=== PATIENT | female | born 1985 | race Caucasian/White ===

== ENCOUNTER → 2025-03-12 17:28 | Day surgery (SDC) | payer OTHER, SELFPAY ==
[2025-03-12] VITALS (12 sets, daily range): BP systolic 105–123; BP diastolic 64–95
[2025-03-12] MEDS: TORADOL 15 MG IV (12:17)
[2025-03-12] MEDS: OMNIPAQUE 50 ML PO (12:18)
[2025-03-12 12:36] LABS: % Basophils 0.3 % (0-2); % Eosinophils 0.3 % (0-6); % Immature Granulocytes 0.5 % (0-0.5); % Monocytes 3.9 % (1.7-9.3); Absolute Immature Granulocytes 0.1 10^3/uL (0-0.05); Absolute Lymphocytes 2.1 10^3/uL (1.2-3.4); Absolute Monocytes 0.5 10^3/uL (0.1-0.6); Absolute Neutrophils 9.1 10^3/uL (1.4-6.5); Hematocrit 40.2 % (37.0-47.0); Hemoglobin 13.7 g/dL (12.0-16.0); Mean Corp Hgb Conc. 34.1 g/dL (33.0-37.0); Mean Corpuscular Hgb 29.6 pg (27.0-31.0); Mean Corpuscular Volume 86.8 fL (81.0-99.0); Mean Platelet Volume 8.9 fL (7.4-10.4); Nucleated Red Blood Cells % 0 %; Platelet Count 344 10^3/uL (130-400); Red Blood Cell Count 4.63 10^6/uL (4.20-5.40); Red Cell Dist. Width 12.8 % (11.5-14.5); White Blood Cell Count 11.8 10^3/uL (4.8-10.8)
[2025-03-12 12:46] LABS: HCG, Serum Qualitative Screen Negative; Urine Albumin 1+ (Neg - Trace); Urine Bilirubin Negative (Negative); Urine Character Clear (Clear); Urine Color Yellow; Urine Glucose Negative (Negative); Urine Ketone 1+ (Negative); Urine Leukocyte 2+ (Negative); Urine Nitrite Negative (Negative); Urine Occult Blood 1+ (Negative); Urine Urobilinogen 3+ (Neg - 1+)
[2025-03-12 12:50] LABS: ALT (SGPT) 20 U/L (0-35); AST (SGOT) 21 U/L (14-36); Albumin 4.5 g/dl (3.5-5.0); Alkaline Phosphatase 63 U/L (38-126); Blood Urea Nitrogen 10 mg/dl (7-17); Calcium 9.8 mg/dl (8.4-10.2); Carbon Dioxide 29 mmol/L (22-30); Chloride 104 mmol/L (98-107); Glucose 97 mg/dl (70-99); Lipase 46 U/L (23-300); Potassium 3.9 mmol/L (3.5-5.1); Sodium 141 mmol/L (135-145); Total Bilirubin 0.9 mg/dl (0.2-1.3); Total Protein 7.8 g/dl (6.3-8.2); eGFR > 60.00
[2025-03-12 16:50] LABS: Urine Red Blood Cell 0-2 /HPF (0-2)
[2025-03-12 16:51] LABS: Urine Bacteria Few (Negative)
--- NOTE | 2025-03-12 17:12 | W.SUR.PREOP ---
Pre-Operative Surgical Note
-
I have examined this patient prior to the performance of the scheduled procedure.
The patient's condition is unchanged from the time of the current History and
Physical and the patient is able to undergo the scheduled procedure.
--- NOTE | 2025-03-12 17:12 | HPS.HSE ---
Family Physician
-
Family Physician: Dakota Aden
Chief Complaint
-
Right lower quadrant abdominal pain
History of Present Illness
This is a 39-year-old female with no significant past medical history who presents with a 2-day history of worsening right lower quadrant abdominal pain initially with vague periumbilical symptoms now more focally in the right lower quadrant. She
endorses some very mild nausea but no vomiting and no other changes to her bowel habits. The patient denies Fever, Chest Pain, Shortness Of Breath, Nausea, Vomiting, changes in urinary and bowel habits, unintentional weight loss, jaundice, icterus,
acolic stools.
Medical History
Past Medical History
Past Medical History: Reports None and Other (Anxiety)
Past Surgical History: Reports None
Social History
Tobacco: Non-smoker
Alcohol: None
Personal: Single
Living: With Family
Family History
Family History: Not pertinent
Allergies / Home Medications
Allergies reflects when Allergies were last updated in [facility].
Home Medications with original date entered in [facility]
Allergy/Medication List:
Benadryl?
Review of Systems
-
A 12 point ROS was completed and negative except as noted: Yes
Physical Exam
Vital Signs
Vital Signs
Temp Pulse Resp BP Pulse Ox
98.3 F 102 16 123/95 98
03/12/25 11:15 03/12/25 11:15 03/12/25 11:15 03/12/25 12:00 03/12/25 12:15
Physical Exam
General: Well Developed
Respiratory: Non Labored Respirations
GI: Tender (Tender to palpation in the right lower quadrant. Positive Rovsing sign)
Neuro: AO x 3
Laboratory Results
-
03/12/25 12:23
03/12/25 12:23
Laboratory Results
Total Bilirubin 0.9 mg/dl (0.2-1.3) 03/12/25 12:23
AST 21 U/L (14-36) 03/12/25 12:23
ALT 20 U/L (0-35) 03/12/25 12:23
Alkaline Phosphatase 63 U/L (38-126) 03/12/25 12:23
Lipase 46 U/L (23-300) 03/12/25 12:23
Data Reviewed
-
CT Scan: Image Personally Visualized and interpreted, Report Reviewed by me, Discussed with Physician, Discussed with Patient and Discussed with Family
Lab Data: Labs Reviewed by me, Discussed with Physician and Discussed with Patient
Impression/Plan
-
IMPRESSION: This is a 39-year-old female who presents to our hospital with 2 days of abdominal pain now more focally in the right lower quadrant. She is tender to palpation in the right lower quadrant and has a mild leukocytosis. Her CT scan
demonstrates mildly thickened appendix with some periappendiceal fat stranding and adjacent lymphadenopathy on my read. There is also note of a possible distal ureteral stone
PLAN:
That the patient is very anxious, we had a long discussion regarding her imaging and exam findings and I suspect that she had a recent GI illness caused her lymphadenopathy and potential blockage of her appendix now leading to early appendicitis.
While this can be managed potentially with antibiotics alone there is a risk for failure of medical management and needing further interventions in addition to a prolonged course of antibiotics versus upfront surgery. After discussion of the risk
benefits and alternatives the patient consented for and would like to move forward with surgery.
Will plan for a laparoscopic appendectomy in the OR today.
N.p.o., IV fluids, IV antibiotics.
May discharge home versus admit post procedure depending on operative findings and postop clinical course.
Risks/Benefits/Alternatives, expected postoperative course and possible complications (bleeding, infection, injury to surrounding structures, acute/chronic pain) discussed at length. Patient wishes to proceed with surgery. All questions answered.
Consent obtained.
I spent 60 minutes in total for the care of this patient today including direct patient care and counseling, reviewing labs, imaging, coordination of care, as well as documentation.
[2025-03-12] MEDS: ATIVAN 0.5 MG IV (17:19)
--- NOTE | 2025-03-12 17:24 | DOWNTIME ---
There was a [employer] Client Button Machine Operator Downtime on 03/12/2025 from 1230 to 03/12/2025 at 1550. Downtime documentation of patient's care, including medication administrations, has been reconciled in the electronic record per guidelines. Refer to the
patient's paper chart under the miscellaneous tab to see printed paper medication records and downtime forms.
--- NOTE | 2025-03-12 18:10 | ED.ADDNOTE ---
ED Addendum
ED Addendum
ED Addendum Note:
Patient received in signout.
39-year-old woman presenting to the emergency department periumbilical pain that radiated down to her right lower quadrant with decreased appetite and nausea. I did receive a call from radiology stating that there is a 2 mm distal ureter stone,
signs of mesenteric adenitis but cannot clearly visualize the appendix though no secondary signs of appendicitis. her blood work did come back with elevated white count. She does have some blood in her urine. Patient does have a convincing story
for appendicitis and remains tender to palpation of the right lower quadrant. I did discuss with general surgery who reviewed CT imaging and evaluated patient. Recommended laparoscopic appendectomy. Will order Zosyn. Given patient's anxiety and
panic attack that she had during my conversation we will treat with small dose of IV Ativan.
--- NOTE | 2025-03-12 18:23 | W.IMMPOSTOP ---
Surgical Immed Post Op Note
-
Primary Surgeon: Joseph Colbert MD
Assisting Surgeon: None
Pre-op Diagnosis: Acute appendicitis
Post-op Diagnosis: Same
Procedure Performed: Laparoscopic appendectomy
Anesthesia Type: General
Specimen / Cultures: Appendix
Estimated Blood Loss: 1 cc
Complications: None
Operative Findings: Mildly inflamed, nonperforated thickened appendix. Base ligated with x2 0 PDS Endoloops.
POST OP PLAN:
Will discharge home from PACU if patient meets criteria.
--- NOTE | 2025-03-12 18:24 | OR.RPT ---
Operative Report
Operative Report
Patient Name: Atiya Lama
: 1985
Date of Operation: 03/12/2025
Preoperative Diagnosis: Acute Appendicitis
Postoperative Diagnosis: Same
Procedure(s):
Laparoscopic Appendectomy
Surgeon(s):
Dr. Colbert
Solutions Operator(s): None
Anesthesia: General
Estimated Blood Loss: 1 cc
Urine Output: None
Drains/Lines/Implants: None
Specimens:
1. Appendix
HPI/Surgical Indications:
This is a 39-year-old male who presents with a 2 day history of abdominal pain. Exam, labs and imaging are consistent with acute appendicitis. Risks/Benefits/Alternatives were discussed at length, and the patient agreed to proceed with surgery.
Findings:
x3 5 mm port appendectomy. Acute non-perforated appendicitis. Base taken with a 0 PDS Endoloop x 2.
Procedure Description:
The patient was placed in the supine position, with the left arm tucked, and general anesthesia was induced. The abdomen was prepared and draped in a sterile fashion so as to expose the entire abdomen. A surgical time out was taken. Abdominal access
was obtained with a 5 mm supra-umbilical Delta Entry. After confirming no injury on entrance, two additional 5mm ports were placed in the suprapubic area just off midline and in the left lower quadrant. The patient was placed in Trendelenberg with
the right slightly up . The appendix was identified and a window was created in the mesoappendix. The appendix was inflamed and thickened but not perforated. Using a laparoscopic bipolar energy device, the meso appendix was divided. The base of the
appendix appeared uninvolved and was ligated/divided using two 0-PDS Endoloops and the energy device. The appendix was placed in a specimen retrieval bag. Hemostasis was confirmed and the ports were removed under visualization. The specimen was
passed off the field. The umbilical port was closed with a bjenzh-de-ycgyy 0-PDS and the skin for all three ports was closed with interrupted monocryls and covered with dermabond. The patient was awoken from anesthesia in good condition and
transported to the recovery area.
I was the attending physician and performed the procedure with no assistance. I was present for all portions of the case.
Joseph Colbert MD
[2025-03-12] MEDS: DILAUDID 0.25 MG IV ×2 (19:00→19:23)
--- NOTE | 2025-03-13 08:15 | ED.GENMED ---
Addendum entered and electronically signed by Atiya Winchester DO 03/15/25 14:25:
Encoumter date: 03/11/25
Original Note:
History of Present Illness
General
Chief Complaint: Abdominal Pain
Time Seen by Provider: 03/12/25 11:54
History of Present Illness
History of Present Illness:
39-year-old female presenting to the emergency department for right lower quadrant abdominal pain. �Patient notes symptoms for the past 3 days.� Reports that the pain started in the middle of her abdomen and has since migrated to the right lower
quadrant.� She saw her primary care doctor today who noted that she come to the ER for evaluation.� Denies any surgical history.� Denies any urinary complaints.� Denies any abnormal discharge.� Denies chest pain, difficulty breathing, fever.� Does
note poor appetite.� Denies vomiting or changes in stool.� Denies additional few medical complaints.
Past History
Past History
ED Past Medical History: None
ED Past Surgical History: Other (Oral surgery)
Social History
Tobacco: Non-smoker
Alcohol: None
Drug: None
Living: with family
Phy Exam
Physical Exam
Physical Exam:
General: Well-appearing, no clinical signs of dehydration, nontoxic and in no acute distress
HEENT: protecting airway
Neck: appears supple
CV: Normal heart rate, regular rhythm
Resp: No accessory muscle use, no increased work of breathing, lungs clear to auscultation bilaterally
Abd: Soft and non-distended, moderate tenderness to the right lower quadrant with positive McBurney point tenderness
Extremities: No deformities, no swelling, no erythema, pulses and sensation intact
Neuro: alert, no focal neurologic deficit
: deferred
Rectal: deferred
Psych: Normal affect
Skin: Intact
Course
Orders/Labs/Results
Orders:
Orders
03/12/25 12:09
Iohexol [Omnipaque] See Protocol PO NOW STA
Ketorolac [Toradol] 15 mg IV NOW STA
03/12/25 12:10
CT Abd/pel W Iv And Oral Contr Urgent
Comment:
Reason For Exam: RLQ pain, r/o appe
Test Result ONCE
03/12/25 12:23
Complete Blood Count/With Diff Urgent
Comprehensive Metabolic Panel Urgent
HCG, Serum Qualitative Screen Urgent
Lipase Urgent
Urinalysis Reflex To Culture Urgent
Date Specimen was Collected: 03/12/25
Time Specimen was Collected: 12:17
Urine Microscopic Reflex Cult Urgent
Urine Culture Urgent
NICK Source: U
Specimen Description:
Date Specimen was Collected: 03/12/25
Time Specimen was Collected: 12:17
03/12/25 Dinner
Regular
03/12/25 16:45
Piperacillin/Tazo 4.5 Gram [Zosyn] 4.5 gram in 100 ml IV NOW
03/12/25 17:10
Lorazepam [Ativan] 0.5 mg PO NOW STA
03/12/25 17:14
Lorazepam [Ativan] 0.5 mg IV NOW STA
03/12/25 17:15
HYDROmorphone [Dilaudid] 0.25 mg IV PACU-Q5MPRN PRN
HYDROmorphone [Dilaudid] 0.5 mg IV PACU-Q5MPRN PRN
Lorazepam [Ativan] 2 mg .ROUTE .STK-MED ONE
Meperidine [Demerol] 12.5 mg IV PACU-Q5MPRN PRN
Normosol (Mult Electrolytes) [Normosol-R/Plasmalyte-A] 1,000 ml IV PER PROTOCOL
Ondansetron Injectable [Zofran] 4 mg IV PACU-ONCEPRN PRN
Prochlorperazine [Compazine] 5 mg IV PACU-ONCEPRN PRN
Notify MD As Directed
Notify physician if: for SDS patients with known or suspected sleep obstructive sleep apnea, monitor in the
PACU.
Notify MD for any apneic/desaturation episodes
O2 Therapy [RESP] Urgent
Titrate/Wean O2 to maintain O2 sat greater than (%): 92
Special Instructions: -Provide supplemental oxygen to achieve O2 sat of 92% or greater.
-After 15 min, may wean O2 and discontinue if patient is able to maintain O2 sat of 92%
or greater during recovery period.
If patient is a discharge home, without oxygen therapy, notify anestheiologist if
unable to maintain O2 SAT of 92% or greater on room air for MD clearance.
03/12/25 17:17
Lidocaine HCl/Pf [Xylocaine-Mpf 1% Vial] 50 mg .ROUTE .STK-MED ONE
Propofol [Diprivan] 20 ml .ROUTE .STK-MED
Rocuronium [place] [Rocuronium] 50 mg .ROUTE .STK-MED ONE
03/12/25 17:18
Fentanyl Citrate/Pf [Sublimaze] 100 mcg .ROUTE .STK-MED ONE
Midazolam HCl [Versed] 2 mg .ROUTE .STK-MED ONE
03/12/25 17:19
Dexamethasone Sod Phosphate [Decadron] 20 mg .ROUTE .STK-MED ONE
Ondansetron Injectable [Zofran] 4 mg .ROUTE .STK-MED ONE
03/12/25 17:23
Bupivacaine 0.5%Pf/Epinephrin [Sensorcain-Mpf Epi 0.5%-0.0005] 30 ml .ROUTE .STK-MED ONE
03/12/25 18:01
Acetaminophen 1000MG/100Ml [Ofirmev] 1,000 mg in 100 ml .ROUTE .STK-MED
03/12/25 18:02
Propofol [Diprivan] 20 ml .ROUTE .STK-MED
Sugammadex Sodium [Bridion] 200 mg .ROUTE .STK-MED ONE
03/12/25 18:08
HYDROmorphone [Dilaudid] 0.25 mg IV PACU-Q5MPRN PRN
HYDROmorphone [Dilaudid] 0.5 mg IV PACU-Q5MPRN PRN
Meperidine [Demerol] 12.5 mg IV PACU-Q5MPRN PRN
Ondansetron Injectable [Zofran] 4 mg IV PACU-ONCEPRN PRN
Prochlorperazine [Compazine] 5 mg IV PACU-ONCEPRN PRN
Notify MD As Directed
Notify physician if: for SDS patients with known or suspected sleep obstructive sleep apnea, monitor in the
PACU.
Notify MD for any apneic/desaturation episodes
O2 Therapy [RESP] Urgent
Titrate/Wean O2 to maintain O2 sat greater than (%): 92
Special Instructions: -Provide supplemental oxygen to achieve O2 sat of 92% or greater.
-After 15 min, may wean O2 and discontinue if patient is able to maintain O2 sat of 92%
or greater during recovery period.
If patient is a discharge home, without oxygen therapy, notify anestheiologist if
unable to maintain O2 SAT of 92% or greater on room air for MD clearance.
03/12/25 18:10
OR Pathology Routine
Pre-Operative Diagnosis: acute appendicitis
Operative Procedure: lap appy
Surgeon: jennifer
Circulating Nurse: natalie
Specimen Type: appendix
03/12/25 18:11
Ketorolac [Toradol] 30 mg .ROUTE .STK-MED ONE
03/12/25 18:15
Normosol (Mult Electrolytes) [Normosol-R/Plasmalyte-A] 1,000 ml IV PER PROTOCOL
03/12/25 20:00
Ibuprofen [Motrin] 600 mg PO SDS-Q6HPRN PRN
Ondansetron Injectable [Zofran] 4 mg IV SDS-ONCEPRN PRN
Oxycodone [Roxicodone] 10 mg PO SDS-Q4HPRN PRN
Oxycodone [Roxicodone] 5 mg PO SDS-Q4HPRN PRN
03/13/25 00:00
Acetaminophen [Tylenol] 650 mg PO SDS-Q4HPRN PRN
Abnormal Lab Results
03/12/25
12:23
WBC 11.8 H 10^3/uL
(4.8-10.8)
Abs Immat Gran (auto) 0.1 H 10^3/uL
(0-0.05)
Absolute Neuts (auto) 9.1 H 10^3/uL
(1.4-6.5)
Neutrophils % 77.0 H %
(42.2-75.2)
Lymphocytes % 18.0 L %
(20.5-51.1)
Urine Ketones 1+ A
(Negative)
Ur Occult Blood Reflex 1+ A
(Negative)
Urine Urobilinogen 3+ A
(Neg - 1+)
Leukocyte Esterase Rfl 2+ A
(Negative)
Urine Bacteria (Reflex) Few A
(Negative)
Urine Albumin (Reflex) 1+ A
(Neg - Trace)
03/12/25 12:23
03/12/25 12:23
Vital Signs
Initial and Last Documented VS:
Initial Vital Signs
Temp Pulse Resp BP Pulse Ox
98.3 F 102 16 116/83 98
03/12/25 11:15 03/12/25 11:15 03/12/25 11:15 03/12/25 11:15 03/12/25 11:15
Last Documented Vital Signs
Temp Pulse Resp BP Pulse Ox
97.4 F 106 21 110/76 98
03/12/25 19:25 03/12/25 20:00 03/12/25 20:00 03/12/25 20:00 03/12/25 20:00
MDM/Problems Addressed
MDM/Problems Addressed:
45-year-old female presenting for right lower quadrant abdominal pain for 3 days.� Vital signs are normal.
On exam patient resting comfortably, nontoxic.� However, moderate tenderness to the right lower quadrant without rebound or guarding.� Ultimate concern for acute appendicitis with McBurney's point tenderness.� Plan for laboratory analysis with CT
abdominal imaging, IV and oral contrast.� Toradol administered for pain.
14:00 -patient signed out to incoming physician pending CT abdominal imaging and reassessment
*Critical Care Note
Total Time (30-74mins, 75-104mins- exclusive of procedures): Not Applicable
ED Attending Note
-
Portions of this chart may have been created with voice recognition software.� Occasional wrong word or��sound alike� substitutions may have occurred due to the inherent limitations of voice recognition software.
Discharge Plan
Departure
Patient Disposition: Home (Routine Discharge)
Date of Disposition: 03/12/25
Time of Disposition: 17:10
Patient with high blood pressure during this ER visit?: No
Discharge Problem:
Acute appendicitis
Interventions
Interventions:
*Risk Screen - Suicide Last Done: 03/12/25 11:15
*General Assessment Last Done: 03/12/25 11:15
*Neglect/Abuse Screening Last Done: 03/12/25 11:15
*Nursing Disposition Last Done: 03/12/25 17:28
[facility]-Rhydbcxlu[facility] Assessment Last Done: 03/12/25 12:30
Discharge Date and Time
Discharge Date/Time: 03/12/25 17:28
== END ==
LOC: EMR 11:10 → SDS 17:28
PROVIDERS: Student in an Organized Health Care Education/Training Program; EMERGENCY PHYSICIAN Student in an Organized Health Care Education/Training Program; FAMILY PHYSICIAN Internal Medicine
DX: K35.80 Unspecified acute appendicitis (principal); K57.92 Diverticulitis of intestine, part unspecified, without perforation or abscess without bleeding
CPT/HCPCS: 44970; 88304; 74177; 80053; 81003; 81015; 83690; 84703; 85025; 87086; 96374; 96375; 99285; C1776; Q9967

== ENCOUNTER → 2025-07-30 14:54 | Outpatient (REF) | payer OTHER, SELFPAY | LOC: RAD 14:54 | PROVIDERS: ATTENDING PHYSICIAN Nurse Practitioner Family | DX: M54.2 Cervicalgia (principal); M25.511 Pain in right shoulder | CPT/HCPCS: 72052; 73030 ==

== ENCOUNTER 2025-08-04 00:36 | Inpatient (IN) | payer OTHER, SELFPAY ==
[2025-08-03] VITALS (9 sets, daily range): BP systolic 128–145; BP diastolic 83–99; PULSE 66–73
[2025-08-03 17:26] LABS: Hematocrit 38.5 % (37.0-47.0); Hemoglobin 13.2 g/dL (12.0-16.0); Mean Corp Hgb Conc. 34.3 g/dL (33.0-37.0); Mean Corpuscular Volume 86.9 fL (81.0-99.0); Nucleated Red Blood Cells % 0 %; Platelet Count 386 10^3/uL (130-400); Red Cell Dist. Width 12.4 % (11.5-14.5)
[2025-08-03 17:35] LABS: INR 1.08; PT 14.3 Sec (11.4-14.6)
[2025-08-03 17:45] LABS: HCG, Serum Qualitative Screen Negative
[2025-08-03 17:49] LABS: ALT (SGPT) 21 U/L (0-35); AST (SGOT) 20 U/L (14-36); Albumin 4.6 g/dl (3.5-5.0); Alkaline Phosphatase 64 U/L (38-126); Blood Urea Nitrogen 14 mg/dl (7-17); Calcium 9.4 mg/dl (8.4-10.2); Carbon Dioxide 25 mmol/L (22-30); Chloride 105 mmol/L (98-107); Glucose 126 mg/dl (70-99); Potassium 3.8 mmol/L (3.5-5.1); Sodium 138 mmol/L (135-145); Total Protein 7.7 g/dl (6.3-8.2); eGFR > 60.00
[2025-08-03 17:58] LABS: Troponin I < 0.012 ng/ml
[2025-08-03 20:08] LABS: D-Dimer 0.54 ug/mlFEU (0.00-0.50)
[2025-08-03] MEDS: TORADOL 15 MG IV (20:36)
[2025-08-03] MEDS: VALIUM INJECTION 2 MG IV (20:37)
--- NOTE | 2025-08-03 22:46 | ED.GENMED ---
History of Present Illness
General
Chief Complaint: Fainting/Passed Out
Source: patient
Exam Limitations: none
Time Seen by Provider: 08/03/25 19:15
Nursing documentation reviewed up to this point in time: agreed with
History of Present Illness
History of Present Illness:
Patient with nonspecific right-sided neck pain radiating down her right arm for the past 2 months, presents to ED secondary to witnessed syncopal episode lasting approximate 5 to 10 seconds this afternoon. Per cousin, who witnessed the event,
patient sat down next to her, after letting her know that she was not feeling with dizziness and pressure behind her eyes. She was laid down to the ground, where she woke up immediately without confusion. Patient proceeded to have 2 vomiting
episodes afterwards. Patient states that afterwards, her neck pain and arm pain appeared to be worse, along with ongoing dizziness, especially with positional changes. Denies loss of sensation or weakness. Denies blurred vision. Denies
difficulty with speech. Denies new trauma. Patient has been evaluated by her primary care physician secondary to neck pain recently and received outpatient x-ray which revealed arthritis. Patient has been taking taper dose of prednisone along
with muscle relaxant for the past 3 days.
Past History
Past History
ED Past Medical History: None
ED Past Surgical History: Other (Oral surgery)
Social History
Tobacco: Non-smoker
Alcohol: None
Drug: None
Living: with family
Review of Systems
Review of Systems
Allergies reviewed?: Yes
All Other Systems: ROS reviewed and negative except as documented in HPI and ROS
Constitutional: Reports no symptoms
Respiratory: Reports no symptoms
Cardiac: Reports syncope
ABD/GI: Reports nausea and vomiting; Denies abdominal pain
Musculoskeletal: Reports no symptoms
Skin: Reports no symptoms
Neurological: Reports dizzy and headache
Phy Exam
Physical Exam
Physical Exam:
Physical Exam
General: mild distress, not acutely ill. afebrile
Head: nc/at. eomi
Neck: supple. normal range of motion. no midline tenderness
Heart: s1/s2 regular rate and rhythm
Lungs: no acute respiratory distress. clear bilaterally
Abdomen: normal bowel sounds. not tender.
Neuro: alert and oriented x 3. no focal sensory/motor deficit. normal speech.
Skin: no rash
Psychiatric: well kept. interactive and cooperative
Extremities: no edema. no calf tenderness.
Course
Orders/Labs/Results
Orders:
Orders
08/03/25 16:58
EKG [Electrocardiogram (*1)] Urgent
Reason for Study: Vertigo / Dizzy
08/03/25 16:59
EKG- Treatment ONCE
Test Result ONCE
08/03/25 17:16
Complete Blood Count/With Diff Urgent
Comprehensive Metabolic Panel Urgent
HCG, Serum Qualitative Screen Urgent
Prothrombin Time Urgent
TSH Reflex To Free T4 Urgent
Troponin I Urgent
08/03/25 19:41
Orthostatic VS- Treatment ONCE
08/03/25 19:46
D-Dimer Urgent
08/03/25 20:30
CT Head & Neck Angio W/wo IV Urgent
Comment:
Reason For Exam: head/neck pain with dizziness/syncope
Ketorolac [Toradol] 15 mg IV NOW STA
diazePAM [Valium Injection] 2 mg IV NOW STA
08/03/25 23:29
Aspirin 325 mg PO NOW STA
Clopidogrel Bisulfate [Plavix] 300 mg PO NOW STA
08/04/25 00:13
Admit/Transfer Patient As Directed
Co-Sign Provider:
Level of Care: Inpatient admission
Assign to:: Telemetry
Physician / Group: Bora
Diagnosis: Vertebral Artery Occlusion / Dissection, Syncope
Reason for Telemetry: CVA/TIA
Date to Stop Telemetry: 08/07/25
Time to Stop Telemetry: 11:00
Reason for Hospitalization: Vertebral Artery Occlusion / Dissection, Syncope
Expected length of stay greater than two midnights?: Yes
ELOS- Estimated Length of Stay in days: 3
I certify the patient meets the requirements for IP care: Yes
PRN Pain Medication Management As Directed
May give lesser potent ordered pain med per pt: Yes
preference::
Protocol:: Medication orders for pain may be administered in a
manner that supports deferring to patient preference
when the pt is:
- Requesting an ordered lesser potent pain medication.
Least to most potent pain medications are defined
as: acetaminophen < NSAID < tramadol < opioids
(morphine, oxycodone, hydromorphone).
- Requesting a lesser dose of the same medication IF
ORDERED.
- Requesting a less intrusive route of administration
if both routes are prescribed by the provider (PO <
IV).
US Periph Venous UPPER Ext RT Urgent
Comment:
Reason For Exam: Pain, Thrombosis
08/04/25 00:14
Code Status As Directed
Resuscitation Status: Full Code
08/07/25 11:00
DC Protocol for Telemetry ONCE
Abnormal Lab Results
08/03/25 08/03/25
17:16 19:46
WBC 11.5 H 10^3/uL
(4.8-10.8)
Abs Immat Gran (auto) 0.1 H 10^3/uL
(0-0.05)
Absolute Neuts (auto) 9.9 H 10^3/uL
(1.4-6.5)
Neutrophils % 85.6 H %
(42.2-75.2)
Lymphocytes % 11.8 L %
(20.5-51.1)
D-Dimer 0.54 H ug/mlFEU
(0.00-0.50)
Glucose 126 H mg/dl
(70-99)
08/03/25 17:16
08/03/25 17:16
Vital Signs
Initial and Last Documented VS:
Initial Vital Signs
Temp Pulse Resp BP Pulse Ox
97.7 F 89 18 131/91 99
08/03/25 16:55 08/03/25 16:55 08/03/25 16:55 08/03/25 16:55 08/03/25 16:55
Last Documented Vital Signs
Temp Pulse Resp BP Pulse Ox
98.8 F 81 19 141/93 100
08/03/25 23:21 08/03/25 23:21 08/03/25 23:21 08/03/25 23:21 08/03/25 23:21
MDM/Problems Addressed
MDM/Problems Addressed:
CTA head and neck report reviewed and discussed with patient. Awaiting callback from [facility] to discuss treatment options.
Discussed with stroke fellow at [facility], who does not feel the patient requires transfer to tertiary care for acute intervention. Recommends admission to the hospital and to be started on anticoagulation versus
antiplatelet agent. Discussed with on-call neurology, Dr. Lorenzo, who recommends that patient to be started on aspirin 325 mg and Plavix 200 mg tonight, and to continue 81 mg aspirin daily along with 75 mg of Plavix daily.
*Pulse Oximetry
SaO2: 100
Oxygen Mode of Delivery: Room air
Patient hypoxic: no
*Critical Care Note
Total Time (30-74mins, 75-104mins- exclusive of procedures): Not Applicable
ED Attending Note
-
Portions of this chart may have been created with voice recognition software.� Occasional wrong word or��sound alike� substitutions may have occurred due to the inherent limitations of voice recognition software.
Discharge Plan
Departure
Patient Disposition: Admit
Date of Disposition: 08/03/25
Time of Disposition: 23:28
Presentation/result/management discussed w/ accepting MD/DO: Hospitalist
Discharge Problem:
Occlusion of right vertebral artery
Interventions
Interventions:
*Risk Screen - Suicide Last Done: 08/03/25 16:58
*General Assessment Last Done: 08/03/25 16:58
*Neglect/Abuse Screening Last Done: 08/03/25 16:58
*ED- Fall Risk Assessment Last Done: 08/03/25 18:21
*ED COVID-19 Vaccine History Last Done: 08/03/25 16:58
*ED Influenza Vaccine History Last Done: 08/03/25 16:58
ED- Cardiac Assessment Last Done: 08/03/25 18:33
ED- Neurological Assessment Last Done: 08/03/25 23:22
[2025-08-03] MEDS: ASPIRIN 325 MG PO (23:39)
[2025-08-03] MEDS: PLAVIX 300 MG PO (23:39)
[2025-08-04] VITALS (19 sets, daily range): BP systolic 104–164; BP diastolic 76–99; PULSE 102–144; BMI 27.7
--- NOTE | 2025-08-04 00:17 | HPS.HSE ---
Family Physician
-
Family Physician: MARYANN Bang
Chief Complaint
-
Neck Pain, Syncope
History of Present Illness
Patient is a 40y F with no significant PMH who presents to ED complaining of syncopal episode. Patient states that she has been having pain in the R neck and into the RUE for about one month. The pain is in the R neck / upper back and radiates
into the R arm to the wrist. She reports sense of stiffness and 'pain in my veins' in the arm / forearm. Patient has been seen by her PCP and had x-rays of the shoulder and cervical spine which were essentially unremarkable. She was placed on
tapering dose of prednisone and muscle relaxants on Monday of this week with minimal change in her symptoms.
Today patient moved some furniture in her home. She went to a family gathering this afternoon / evening and noted that she was feeling lightheaded / dizzy.
She was standing near a relative when she lost conscious and passed out. She was reportedly supported and lowered to the ground with no impact / injury.
She was unconscious for a brief time and then woke with N/V and diaphoresis.
Patient was brought to the ED for further evaluation and treatment.
In the ED, patient is anxious and continues to complain of dizziness - though much improved from prior.
Patient denies any history of chiropractic treatments. 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 No other injury, trauma, etc to the neck or arm.
Medical History
Past Medical History
Past Medical History: Reports None
Past Surgical History: Reports Other
Additional Past Surgical History:
Appendectomy
Social History
Tobacco: Non-smoker
Alcohol: Occasional
Drug: None
Family History
Family History: Other (Aunt: Blood Clots, Brain Aneurysm Mother: Breast Cancer, CVA, Seizures MGF/MGM: CAD)
Allergies / Home Medications
Allergies reflects when Allergies were last updated in [facility].
Home Medications with original date entered in [facility]
Allergy/Medication List:
Allergies
Allergy/AdvReac Type Severity Reaction Status Date / Time
diphenhydramine (From Allergy Unknown Verified 08/03/25 16:57
Benadryl)
Home Medications
Stephanie 08/03/25
prednisone 08/03/25
Review of Systems
-
History Source: Patient
A 12 point ROS was completed and negative except as noted: Yes
Constitutional: Reports Fatigue; Denies Fever or Chills
EENT: Denies Sore Throat or Runny Nose
Respiratory: Denies Cough or Trouble Breathing
Cardiac: Reports Syncope; Denies Chest Pain or Palpitations
Abdomen/GI: Reports Nausea and Vomiting; Denies Abdominal Pain or Diarrhea
: Denies Dysuria, Frequency or Flank Pain
Musculoskeletal: Reports Other (Neck pain / RUE pain.)
Neurological: Reports Dizzy and Headache; Denies Weakness or Numbness
Psych: Reports Anxiety; Denies Depression
Physical Exam
Vital Signs
Vital Signs
Temp Pulse Resp BP Pulse Ox
98.8 F 81 19 141/93 100
08/03/25 23:21 08/03/25 23:21 08/03/25 23:21 08/03/25 23:21 08/03/25 23:21
Physical Exam
General: Other (Anxious, tearful 40y F.)
HEENT: Moist mucous membranes and PERRLA
Respiratory: Clear; No Wheezes, Rales or Rhonchi
Cardiac: S1/S2 and Regular Rhythm; No Murmur
GI: Soft, Non Tender, Non Distended and Normal Bowel Sounds
Musculoskeletal: No Clubbing, No Cyanosis and No Edema
Neuro: AO x 3 and Nonfocal/grossly intact
Laboratory Results
-
08/03/25 17:16
08/03/25 17:16
Laboratory Results
PT 14.3 Sec (11.4-14.6) 08/03/25 17:16
INR 1.08 08/03/25 17:16
Total Bilirubin 0.6 mg/dl (0.2-1.3) 08/03/25 17:16
AST 20 U/L (14-36) 08/03/25 17:16
ALT 21 U/L (0-35) 08/03/25 17:16
Alkaline Phosphatase 64 U/L (38-126) 08/03/25 17:16
Troponin I < 0.012 ng/ml 08/03/25 17:16
Impression/Plan
-
A/P: Patient is a 40y F with no significant PMH who presents to ED following syncopal episode this afternoon.
Right Vertebral Artery Occlusion
Syncope / Dizziness likely secondary to the above
Neck Pain / RUE Pain likely secondary to the above
- Admit for further evaluation and treatment.
- ED staff reviewed case with Neurology at [place] and here at who advised DAPT and local admission / evaluation.
- Likely underlying vert art dissection in this otherwise healthy 40y - though family history and use of OCPs raise other possibilities.
- Symptomatic lesion with not only pain but now dizziness and syncope.
- Monitor for any new / worsening neurologic symptoms.
- ASA / Plavix for now per Neurology recommendations.
- ? consider anticoagulation and / or hypercoagulable work-up given family history (Aunt with 'blood clot' and 'brain aneurysm').
- Defer any additional imaging / other work up to Neurology.
- Would remain off of estrogen-containing agents / OCPs moving forward.
Anxiety / Depression
- Patient clearly anxious regarding symptoms, findings, etc.
- PO Ativan as needed for anxiety / symptom management.
DVT Prophylaxis: Lovenox for now
Code Status: Full
--- NOTE | 2025-08-04 03:16 | PTCARENOTE ---
Received pt from ED via stretcher into room 7913. Ambulated w/ standby assist and c/o dizziness when standing on the scale. Patient assisted to bed. Tele monitor shows NSR. BP 135/83, 99% RA. Lungs decreased throughout. Pt AAOx3, anxious and
tearful. Emotional support provided. Neuro WNL. Offered patient PRN Ativan, patient refused at this time. Oriented patient to room, POC reviewed. Call berger within reach.
[2025-08-04 03:57] LABS: Hematocrit 36.9 % (37.0-47.0); Hemoglobin 12.9 g/dL (12.0-16.0); Mean Corp Hgb Conc. 35.0 g/dL (33.0-37.0); Mean Corpuscular Volume 85.0 fL (81.0-99.0); Platelet Count 383 10^3/uL (130-400); Red Cell Dist. Width 12.5 % (11.5-14.5)
[2025-08-04 04:26] LABS: Blood Urea Nitrogen 12 mg/dl (7-17); Calcium 9.1 mg/dl (8.4-10.2); Carbon Dioxide 24 mmol/L (22-30); Chloride 105 mmol/L (98-107); Estimated Creatinine Clearance 93 ml/min; Glucose 87 mg/dl (70-99); HDL Cholesterol 65 mg/dl; LDL Cholesterol, Calculated 87 mg/dl; Potassium 3.7 mmol/L (3.5-5.1); Sodium 137 mmol/L (135-145); Very Low Density Lipoprotein 13 mg/dl (0-30); eGFR > 60.00
[2025-08-04 08:57] LABS: Glycohemoglobin (HgbA1c) 5.3 % (4.0-5.6)
[2025-08-04] MEDS: LOW STRENGTH ASPIRIN 81 MG PO (09:40)
[2025-08-04] MEDS: PLAVIX 75 MG PO (09:41)
[2025-08-04] MEDS: ATIVAN 0.5 MG PO (09:42)
[2025-08-04] MEDS: FLUSH (NSS) 1 FLUSH IV (09:42)
--- NOTE | 2025-08-04 09:46 | CON.NEURO4 ---
Addendum entered and electronically signed by Luis Young MD 08/04/25 11:33:
Studies reviewed.
I have personally examined the patient. I reviewed and agree with the SOFTWARE COMPUTER SPECIALIST's Note.
My addenda:
Awake, alert, interactive. No acute distress.
Speech intact.
Follows 2-step requests w/o difficulty. No tremor.
Extra-ocular movements grossly intact.
Facial movements full and symmetric. Hearing intact to normal conversational volume.
Normal UE movements bilaterally.
Neck: full ROM.
Chest: no dyspnea
Heart: no JVD
Ext: (-) Clubbing, (-) Cyanosis, (-) Edema
IMPRESSIONS/RECOMMENDATIONS:
Abrupt onset of worsening neck pain and right arm pain with months of pain onset. 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
Would continue aspirin and clopidogrel with discontinuance of clopidogrel after 21 days
Check renal arteries for possible etiology to explain current symptoms
Check blood work for potential metabolic causes
Check blood work for potential hypercoagulable state
D/W patient / family / nursing
All questions answered.
Will continue to follow patient.
Original Note:
Documented by User: Aziza Haque NP 08/04/25 11:21
Consultation - Neurology 4
-
CONSULTING PHYSICIAN: Luis Young MD
REFERRING PHYSICIAN: Hospitalists/Dr. Sahni
DICTATED BY: MARYANN Thompson
DATE/TIME OF REQUEST: 08/04/25
DATE/TIME OF CONSULTATION: 08/04/25
Reason for Consultation: Dizziness, neck pain, syncope
History of Present Illness:
This is a 40-year-old right-handed female who has presented to the hospital on 08/03/25 with report of right-sided neck and arm discomfort and syncopal episode. Patient reports that a couple of months ago she started having a right neck and
shoulder discomfort that she describes as a burning sensation. She notes that she also intermittently had a tingling sensation in her right arm and hand. She attributed it to arthritis because this runs in her family and she was taking OTC pain
relievers which helped. The discomfort persisted but wasn't daily. Five days ago on 07/30/25 the discomfort worsened and she went to see her PCP about it. She had xrays completed of her cervical spine and right shoulder that demonstrated minimal
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 She was given prednisone and notes that on day three of medication she still had no relief of symptoms. Then yesterday (08/03/25), she had moved furniture earlier in the day and then in the
evening she reports starting to feel light-headed. She proceeded to lose consciousness for about 10 seconds and when she came to she reports feeling hot, her right neck hurt, and she vomited. She denies any tongue biting or loss of control of bowel
and bladder. CTA head/neck was obtained on arrival and demonstrates a complete occlusion and possible dissection of the right vertebral artery. She was loaded with aspirin and clopidogrel in the ER. Today (08/04/25), patient reports that her
light-headedness and her neck pain have resolved. She notes some discomfort in her right upper arm. She denies any headache, vision changes, speech/swallow difficulty, numbness, and weakness.
Past Medical History: Denies.
Surgical History: Appendectomy.
Family History: Aunt- blood clots, cerebral aneurysm. Mother- CVA, seizures.
Social History: Occasionally alcohol. Denies tobacco and illicit drug use.
Allergies: Diphenhydramine.
Home Medications: See below.
Review of Symptoms:
Patient denies any fever, headache, chest pain, shortness of breath, GI or symptoms.
�Per the HPI.�All systems are reviewed negative except above.
Physical Exam:
The patient is afebrile, abdomen is nondistended, breathing is unlabored, skin is warm and dry, no edema.
NIH Stroke Scale:
I performed the NIH stroke scale on the patient on 08/04/25 at 0950. The patient scored 0 points on the NIH stroke scale assessment, which were assigned as follows: See below.
Neurologic Examination:
The patient is awake, alert and oriented x 3. She is able to follow commands and answer questions appropriately. There is no aphasia or dysarthria. On cranial nerve assessment, pupils are 3 mm bilateral, round and reactive to light and
accommodation. Visual krishnamurthy are full. Extraocular movements are intact. Facial sensations are intact and bilaterally symmetrical, there is no facial asymmetry. Hearing is intact bilaterally to normal conversation volume. Tongue palate and uvula are
midline. Sternocleidomastoid strengths are full bilaterally. Motor strengths are 5/5 bilateral upper and lower extremities on medical research [place] scale. There is no drift or involuntary movement noted. Deep tendon reflexes are 2+ bilateral
upper and lower extremities and Babinski is absent bilaterally. There was no extinction noted on double simultaneous stimulation. Coordination is intact by finger to nose bilaterally.
Lab Results: See below.
Neuro Imaging:
1. CTA Head/Neck 08/03/25: COMPLETE OCCLUSION of the RIGHT VERTEBRAL ARTERY 7.6 mm distal to the origin with complete occlusion of the foraminal segment (C6-C2 levels). RIGHT VERTEBRAL ARTERY DISSECTION is considered most likely in a patient of this
age with neck pain. No CTA evidence for stenosis, occlusion, or dissection in the left vertebral artery. No CTA evidence for stenosis, occlusion, or dissection in the internal carotid arteries. No CT evidence for acute intracranial hemorrhage or
transcortical infarct.
Differentials for the patient's presentation include:
1. Right vertebral artery occlusion, likely dissection per CTA head/neck imaging.
2. Right upper extremity superficial thrombus within the distal cephalic vein.
Patient has the following risk factors for their symptoms: None.
IV Tenecteplase/IAT candidacy: Not a candidate due to vertebral artery dissection/occlusion, NIHSS 0.
Recommendations:
-Continue DAPT with aspirin 81mg and clopidogrel 75mg daily.
-Recommend renal ultrasound to rule out structural vessel abnormality given unknown cause of vertebral dissection.
-Checking blood work for abnormalities that could contribute to vertebral dissection/occlusion.
-Goal normotension.
-NIHSS and neurological checks per unit guidelines.
-Provide patient with a stroke education packet.
-PT/OT evaluations.
-DVT prophylaxis.
Discussed patient care with: Dr. Young, the patient, patient's family
Vital Signs and Labs
-
Vital Signs and Labs:
Vital Signs
Temp Pulse Resp BP Pulse Ox
98.2 F 69 20 135/83 99
08/04/25 07:09 08/04/25 02:18 08/04/25 07:09 08/04/25 02:18 08/04/25 07:09
Lab Results
08/04/25 02:52
08/04/25 02:53
PT 14.3 Sec (11.4-14.6) 08/03/25 17:16
INR 1.08 08/03/25 17:16
Sodium 137 mmol/L (135-145) 08/04/25 02:53
Potassium 3.7 mmol/L (3.5-5.1) 08/04/25 02:53
BUN 12 mg/dl (7-17) 08/04/25 02:53
Glucose 87 mg/dl (70-99) 08/04/25 02:53
Calcium 9.1 mg/dl (8.4-10.2) 08/04/25 02:53
LDL Cholesterol, Calc 87 mg/dl 08/04/25 02:53
Medications
-
Active Medications
Generic Name Dose Route Start Last Admin
Trade Name Freq PRN Reason Stop Dose Admin
Acetaminophen 650 mg 08/04/25 02:39
Acetaminophen 325 Mg Tablet PO 09/01/25 02:38
Q4HPRN PRN
Mild Pain / Temp > 101
Aspirin 81 mg 08/04/25 08:00 08/04/25 09:40
Aspirin 81 Mg Chewable Tablet PO 09/01/25 07:59 81 mg
DAILY CARLY Administration
Clopidogrel Bisulfate 75 mg 08/04/25 08:00 08/04/25 09:41
Clopidogrel 75 Mg Tablet PO 09/01/25 07:59 75 mg
DAILY CARLY Administration
Enoxaparin Sodium 40 mg 08/04/25 18:00
Enoxaparin Sodium 40 Mg/0.4 Ml Syringe SC 09/01/25 17:59
QPM CARLY
Lorazepam 0.5 mg 08/04/25 02:39 08/04/25 09:42
Lorazepam 0.5 Mg Tablet PO 09/01/25 02:38 0.5 mg
Q4HPRN PRN Administration
Anxiety
Sodium Chloride 0 flush 08/04/25 03:00 08/04/25 09:42
Sodium Chloride 0.9% (Flush) Syringe IV 09/01/25 02:59 1 flush
PER PROTOCOL CARLY Administration
Home Medications
�Medication �Instructions �Recorded
Stephanie 08/03/25
prednisone 08/03/25
NIH Stroke Score
Subsequent NIH Scale
Date of Subsequent NIH Scale: 08/04/25
Time of Subsequent NIH Scale: 09:50
NIH Stroke Score
Level of Consciousness: 0 - Alert
LOC Questions: 0-Answers both correctly
LOC Commands: 0-Performs both correctly
Best Horizontal Gaze: 0-Normal
Visual Krishnamurthy: 0=Normal, no visual loss
Facial Palsy: 0=Normal, symmetrical
Motor - Right Arm: 0=No drift 10 seconds
Motor - Left Arm: 0=No drift 10 seconds
Motor - Right Le-No drift 5 seconds
Motor - Left Le-No drift 5 seconds
Limb Ataxia: 0-Absent
Sensation: 0-Normal
Best Language: 0-No aphasia
Dysarthria: 0-Normal
Extinction and Inattention: 0-No abnormality
NIH Total Score:: 0
Modified [place] (mRS) Score
Modified [place] Scale (mRS): No symptoms
Score: 0

Documented by User: Luis Young MD 08/04/25 11:26
NIH Stroke Score
NIH Stroke Score
NIH Total Score:: 0
Modified [place] (mRS) Score
Score: 0
--- NOTE | 2025-08-04 10:50 | PTCARENOTE ---
Patient ordered a stat renal artery u/s however department says she must be NPO and it could be done early afternoon since she ate. Telephoned Dr. Gonzalez and patient now ordered a stat CT of the abd/pelvis. She is very anxious, given prn dose of
PO ativan as ordered. Patient seen by neurology prior to transfer to CT. Family waiting in the patient's room.
[2025-08-04 11:30] LABS: Ferritin 24.6 ng/ml (6.24-137)
[2025-08-04 12:01] LABS: Folate 16.7 ng/ml (2.76-20); Vitamin B12 249 pg/ml (239-931)
--- NOTE | 2025-08-04 13:10 | CM ---
Reviewed chart. Met with Ms. Lama to review discharge plans. She states prior to admission she resides with her mother and two children in a two story home with two steps to enter. She states she has a full alight of steps to get to
bedroom/full bathroom. She states she has a powder room on the firt floor. She states prior to admission she was independent with ambulation and adls. She states she garcia not have any DME int he home. She states she has a prescription plan and uses
[facility]. Will need to see her current functional level to see if she will have [place] skilled care needs. Medical work-up in progress. The discharge plan is to return home with her mother and children when medically stable.
--- NOTE | 2025-08-04 15:37 | W.PN.HOSP.TC ---
Today's Communication/Plan
-
Renal US
Hypercoag work up
stop steroids, OCPs
Assessment / Plan
Assessment / Plan
Physical Exam
General: Other (Anxious, tearful)
HEENT: Moist mucous membranes and PERRLA
Respiratory: Clear; No Wheezes, Rales or Rhonchi
Cardiac: S1/S2 and Regular Rhythm; No Murmur
GI: Soft, Non Tender, Non Distended and Normal Bowel Sounds
Musculoskeletal: No Clubbing, No Cyanosis and No Edema
Neuro: AO x 3 and Nonfocal/grossly intact
A/P: Patient is a 40y F with no significant PMH who presents to ED following syncopal episode this afternoon.
Right Vertebral Artery Occlusion
Syncope / Dizziness likely secondary to the above
Neck Pain / RUE Pain likely secondary to the above
- DAPT and local admission / evaluation.
- Symptomatic lesion with not only pain but now dizziness and syncope.
- Monitor for any new / worsening neurologic symptoms.
- ASA / Plavix for now per Neurology recommendations.
- ESR negative; add on CRP; F/u Protein C, S
- CT A/P with angio - no obvious renal dissection
- F/u renal Dopplers, US
- LE dopplers; low risk for PE but will be helpful for risk stratification
- Defer any additional imaging / other work up to Neurology.
- Would remain off of estrogen-containing agents / OCPs moving forward.
- No other obvious metabolic cause at this time
#Superficial thrombus within the distal cephalic vein in the region of the antecubital fossa
-stop oral contraceptive
#Anxiety / Depression
- Patient clearly anxious regarding symptoms, findings, etc.
- PO Ativan as needed for anxiety / symptom management.
- stop steroids - may worsen tachycardia/anxiety
DVT Prophylaxis: Lovenox for now
Code Status: Full
Anticipated Discharge: 24 - 48 hours
Subjective/Interval History
-
Date of Service: August 04, 2025
anxious although normotensive, and tachycardic
Objective Data
-
Labs:
Laboratory Results
08/04/25 08/04/25
02:52 02:53
WBC 11.8 H
Hgb 12.9
Hct 36.9 L
Plt Count 383
Sodium 137
Potassium 3.7
Chloride 105
Carbon Dioxide 24
BUN 12
Creatinine 0.7
Glucose 87
Calcium 9.1
Vital Signs:
Vital Signs
Temp Pulse Resp BP Pulse Ox
97.8 F 120 20 122/83 98
08/04/25 11:12 08/04/25 11:12 08/04/25 11:12 08/04/25 11:12 08/04/25 11:12
Review of Systems
-
History Source: Patient
All other systems: Not reviewed unless documented
Data Reviewed
-
CT Scan: Report Reviewed by me
Labs: Labs Reviewed by me
[2025-08-04 16:45] LABS: C-Reactive Protein 6.90 mg/L (0.0-10.00)
[2025-08-04] MEDS: LOVENOX 40 MG SC (17:08)
--- NOTE | 2025-08-04 17:23 | PTCARENOTE ---
Patient lying in bed, aware to request assistance when needing to go to the bathroom. Denies any pain but occasional dizziness which is unrelated to activity. Patient updated as requested by Dr. Gonzalez that her CT and ultrasounds at this point are
negative. MRI of the brain is ordered, she is extremely anxious and tearful about having test. Telephoned about premedication for MRI, IV ativan ordered- IV valium substituted by pharmacy per protocol to be given prior to MRI, patient is aware,
family at the bedside.
[2025-08-04] MEDS: VALIUM INJECTION 5 MG IV (20:48)
--- NOTE | 2025-08-04 23:48 | PTCARENOTE ---
Received pt at change of shift resting in bed. NIH 0. pt anxious, IV Valium administered prior to MRI per order--see DEC. SR-ST on tele, HR 70's-110's. Downloaded VS from , 0 on. pt denies any CP or SOB at this time. pt also denies any
lightheadedness/dizziness, encouraged pt to call RN for assistance ambulating. pt verbalizes understanding, call berger within reach.
[2025-08-05 03:54] VITALS: BP 94/71
[2025-08-05 04:26] LABS: Hematocrit 39.1 % (37.0-47.0); Hemoglobin 12.9 g/dL (12.0-16.0); Mean Corp Hgb Conc. 33.0 g/dL (33.0-37.0); Mean Corpuscular Volume 88.5 fL (81.0-99.0); Platelet Count 345 10^3/uL (130-400); Red Cell Dist. Width 13.0 % (11.5-14.5)
[2025-08-05 04:40] LABS: ALT (SGPT) 23 U/L (0-35); AST (SGOT) 21 U/L (14-36); Albumin 3.9 g/dl (3.5-5.0); Alkaline Phosphatase 48 U/L (38-126); Blood Urea Nitrogen 10 mg/dl (7-17); Calcium 9.1 mg/dl (8.4-10.2); Carbon Dioxide 28 mmol/L (22-30); Chloride 106 mmol/L (98-107); Estimated Creatinine Clearance 82 ml/min; Glucose 83 mg/dl (70-99); Potassium 4.3 mmol/L (3.5-5.1); Sodium 138 mmol/L (135-145); Total Protein 6.6 g/dl (6.3-8.2); eGFR > 60.00
[2025-08-05 07:44] VITALS: BP 104/71
[2025-08-05] MEDS: VITAMIN B-12 1000 MCG PO (08:21)
[2025-08-05] MEDS: PLAVIX 75 MG PO (08:23)
[2025-08-05] MEDS: LOW STRENGTH ASPIRIN 81 MG PO (08:23)
[2025-08-05 11:50] VITALS: BP 106/84
[2025-08-05 12:00] VITALS: BP 106/84; PULSE 97; O2SAT 98
--- NOTE | 2025-08-05 12:11 | CM ---
Reviewed chart. Met with Ms. Lama to review discharge plans. She states she is feeling better today. Prior to admission she resides with her mother and two children in a two story home with two steps to enter. She has a full alight of steps to
get to bedroom/full bathroom. She has a powder room on the first floor. Prior to admission she was independent with ambulation and adls. She does not have any DME int he home. She has a prescription plan and uses [facility]. Will need to see
her current functional level to see if she will have any skilled care needs. Medical work-up in progress. The discharge plan is to return home with her mother and children when medically stable.
--- NOTE | 2025-08-05 13:33 | W.PN.HOSP.TC ---
Today's Communication/Plan
-
DAPT 21 days, then ASA alone
F/u Carter Avina - vascular neurosurgeon
F/u Neurology outpt
Stop steroids, OCPs, f/u with OB outpt
Assessment / Plan
Assessment / Plan
Physical Exam
General: Other (Anxious, tearful)
HEENT: Moist mucous membranes and PERRLA
Respiratory: Clear; No Wheezes, Rales or Rhonchi
Cardiac: S1/S2 and Regular Rhythm; No Murmur
GI: Soft, Non Tender, Non Distended and Normal Bowel Sounds
Musculoskeletal: No Clubbing, No Cyanosis and No Edema
Neuro: AO x 3 and Nonfocal/grossly intact
A/P: Patient is a 40y F with no significant PMH who presents to ED following syncopal episode this afternoon.
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
Right Vertebral Artery Occlusion
Syncope / Dizziness likely secondary to the above
Neck Pain / RUE Pain likely secondary to the above
- DAPT and local admission / evaluation.
- Symptomatic lesion with not only pain but now dizziness and syncope.
- Monitor for any new / worsening neurologic symptoms.
- ASA / Plavix for now per Neurology recommendations.
- ESR and CRP negative; F/u Protein C, S
- CT A/P with angio - no obvious renal dissection
- F/u renal Dopplers, US
- LE dopplers; low risk for PE but will be helpful for risk stratification
- Defer any additional imaging / other work up to Neurology.
- Would remain off of estrogen-containing agents / OCPs moving forward.
- No other obvious metabolic cause at this time
-DAPT 21 days, then ASA alone
-F/u hematology outpt
-F/u Carter Avina who is a vascular neurosurgeon outpt
-ECHO WNL
#Superficial thrombus within the distal cephalic vein in the region of the antecubital fossa
-stop oral contraceptive
#Anxiety / Depression
- Patient clearly anxious regarding symptoms, findings, etc.
- PO Ativan as needed for anxiety / symptom management.
- stop steroids - may worsen tachycardia/anxiety
DVT Prophylaxis: Lovenox for now
Code Status: Full
More than 30 minutes spent in discharge including
Final examination of the patient
Summarizing hospital stay
Instructions for continuing care to all relevant caregivers
Preparation of discharge records, prescriptions, and referral forms
Total time spent (in minutes): 36
Anticipated Discharge: Today
Subjective/Interval History
-
Date of Service: August 05, 2025
no acute events overnight
Objective Data
-
Labs:
Laboratory Results
08/05/25
04:03
WBC 7.8
Hgb 12.9
Hct 39.1
Plt Count 345
Sodium 138
Potassium 4.3
Chloride 106
Carbon Dioxide 28
BUN 10
Creatinine 0.8
Glucose 83
Calcium 9.1
Total Bilirubin 0.7
AST 21
ALT 23
Alkaline Phosphatase 48
Vital Signs:
Vital Signs
Temp Pulse Resp BP Pulse Ox
98.1 F 96 18 104/71 97
08/05/25 12:09 08/05/25 12:09 08/05/25 12:09 08/05/25 07:44 08/05/25 12:09
I&O
08/04/25 08/05/25 08/06/25
06:59 06:59 06:59
Intake Total 700 / 700
Balance 700 / 700
Review of Systems
-
History Source: Patient
All other systems: Not reviewed unless documented
Data Reviewed
-
CT Scan: Report Reviewed by me
Labs: Labs Reviewed by me
--- NOTE | 2025-08-05 13:41 | W.DS.TRANS ---
DC Summary - Brand Engineer
-
Discharge Instructions:
Discharge Diagnosis/Procedures 1. Small 8.3 mm ACUTE to SUBACUTE ISCHEMIC
INFARCT in the RIGHT CEREBELLAR HEMISPHERE.
2. RIGHT VERTEBRAL ARTERY OCCLUSION.
Diet Low Fat,Low Cholesterol
Activity As tolerated
Blood Work cbc and cmp in 1 week with pcp
Instructions:
Stand-Alone Forms:
Changes to Home Medications: Yes
Discharge Medications:
DC Medications w/original date entered in [employer]
aspirin 81 mg chewable tablet 81 mg PO DAILY 30 days #30 tabs 08/05/25
atorvastatin 40 mg tablet (Lipitor) 40 mg PO HS 30 days #30 tabs 08/05/25
clopidogrel 75 mg tablet 75 mg PO DAILY 21 days #21 tabs 08/05/25
cyanocobalamin (vitamin B-12) 500 mcg tablet 1,000 mcg (2 x 500 mcg) PO DAILY #90 tabs 08/05/25
ferrous sulfate 325 mg (65 mg iron) tablet (FeroSul) 325 mg PO HS 30 days #30 tabs 08/05/25
Home Medication Changes
aspirin 81 mg chewable tablet 81 mg PO DAILY 30 days #30 tabs 08/05/25
atorvastatin 40 mg tablet (Lipitor) 40 mg PO HS 30 days #30 tabs 08/05/25
clopidogrel 75 mg tablet 75 mg PO DAILY 21 days #21 tabs 08/05/25
cyanocobalamin (vitamin B-12) 500 mcg tablet 1,000 mcg (2 x 500 mcg) PO DAILY #90 tabs 08/05/25
ferrous sulfate 325 mg (65 mg iron) tablet (FeroSul) 325 mg PO HS 30 days #30 tabs 08/05/25
Pending Results: No
[2025-08-05 14:17] VITALS: BP 109/85
[2025-08-05 15:33] VITALS: BP 124/83
--- NOTE | 2025-08-05 15:39 | PTCARENOTE ---
Pt c/o mild R neck pain this morning, does not want Tylenol at this time. Pt worked with PT today, walked in halls, serena well. Pt had some dizziness this afternoon, Dr Gonzalez aware. Dr Young came to see Pt.
[2025-08-05] MEDS: ATIVAN 0.5 MG PO (15:52)
--- NOTE | 2025-08-05 16:01 | W.PN.NEURO.1 ---
Today's Communication / Plan
-
Continue aspirin and clopidogrel for 21 days, then aspirin alone
Provide atorvastatin 40 mg due to mildly elevated LDL, greater than 70
Patient may resume normal activities
Patient was encouraged to maintain excellent hydration in hopes of reducing the possibility of relative hypotension producing symptoms
Outpatient evaluation by vascular neurosurgery to confirm that there is no procedure to be performed for this issue
Outpatient workup for hypercoagulable state as the patient has superficial thrombotic changes
Neuro Assessment/Plan
Assessment
Abrupt onset of worsening neck pain and right arm pain with months of pain onset. 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
MRI of brain was suggestive of small nonacute by my reading right cerebellar lacunar ischemic stroke
Plan
Continue aspirin and clopidogrel for 21 days, then aspirin alone
Provide atorvastatin 40 mg due to mildly elevated LDL, greater than 70
Patient may resume normal activities
Patient was encouraged to maintain excellent hydration in hopes of reducing the possibility of relative hypotension producing symptoms
Outpatient evaluation by vascular neurosurgery to confirm that there is no procedure to be performed for this issue
Outpatient workup for hypercoagulable state as the patient has superficial thrombotic changes
Will follow as outpatient
Subjective/Objective
Subjective Data
Date of Service: August 05, 2025
Patient reports new episode of dizziness while seated
Objective Data
Vital Signs
Temp Pulse Resp BP Pulse Ox
37.1 C 100 18 124/83 98
08/05/25 15:39 08/05/25 15:39 08/05/25 15:39 08/05/25 15:33 08/05/25 15:39
Lab Results
08/05/25 04:03
08/05/25 04:03
PT 14.3 Sec (11.4-14.6) 08/03/25 17:16
INR 1.08 08/03/25 17:16
Sodium 138 mmol/L (135-145) 08/05/25 04:03
Potassium 4.3 mmol/L (3.5-5.1) 08/05/25 04:03
BUN 10 mg/dl (7-17) 08/05/25 04:03
Glucose 83 mg/dl (70-99) 08/05/25 04:03
Calcium 9.1 mg/dl (8.4-10.2) 08/05/25 04:03
LDL Cholesterol, Calc 87 mg/dl 08/04/25 02:53
Vitamin B12 249 pg/ml (239-931) 08/04/25 08:59
Patient Allergies
diphenhydramine (From Benadryl) Allergy (Verified 08/03/25 16:57)
Unknown
Review of Systems
-
History Source: Patient
All other systems: Reviewed and negative
Neuro: Dizzy and Headache
Physical Exam
-
General: No Apparent Distress and Appears Stated Age
Eyes: Round OU, [place] Conjunctivae and No Ptosis
HEENT: Anicteric and Moist Mucous Membranes
Neck: Full Range of Motion
Respiratory: No Dyspnea
Cardiac: No JVD
GI: Non-distended
Skin: Unremarkable
Extremities: No Clubbing, No Cyanosis and No Edema
Psych: Negative Intact Judgement/Insight
Extended Neurological Exam
Mood & Affect: Anxious
Attention Span & Concentration: Awake, Alert and Interactive
Memory: Unremarkable
Tremor: Hand Tremor Absent and Head Tremor Absent
Speech: Quality Unremarkable and Quantity Unremarkable
Cranial Nerve II: Left Eye: Pupillary Size Unremarkable and Visual Krishnamurthy Grossly Intact
Cranial Nerve II: Right Eye: Pupillary Size Unremarkable and Visual Krishnamurthy Grossly Intact
Cranial Nerves III, IV, : Extraocular Movement: Extraocular Movement Full in all Directions (Patient had difficulty with tracking which was functional)
Cranial Nerve VII: Facial Symmetry: Normal Facial Symmetry
Cranial Nerve VIII: Hearing: Unremarkable Hearing to Normal Conversational Volume
Cranial Nerve XI: Shoulder Shrug: Unremarkable
Muscle Strength, Overall: Spontaneously Moves
Muscle Bulk & Tone: Bulk Unremarkable and Tone Unremarkable
Touch Sensation: Unremarkable
Coordination: [id number] Testing Unremarkable
Data Reviewed
-
MRI Head: Report Reviewed and Image Reviewed
Labs: Report Reviewed
Reviewed with: Physician, Patient and Family
Old Records: Summarized
Past History
Past History
ED Past Medical History: Other (Right vertebral artery dissection and occlusion August 2025)
ED Past Surgical History: Other (Oral surgery)
Social History
Tobacco: Non-smoker
Alcohol: None
Drug: None
Living: with family
Medications
-
Medications:
Generic Name Dose Route Start Last Admin
Trade Name Freq PRN Reason Stop Dose Admin
Acetaminophen 650 mg 08/04/25 02:39
Acetaminophen 325 Mg Tablet PO 09/01/25 02:38
Q4HPRN PRN
Mild Pain / Temp > 101
Aspirin 81 mg 08/04/25 08:00 08/05/25 08:23
Aspirin 81 Mg Chewable Tablet PO 09/01/25 07:59 81 mg
DAILY CARLY Administration
Atorvastatin Calcium 40 mg 08/05/25 18:00
Atorvastatin (Lipitor) 40 Mg Tablet PO 09/02/25 17:59
QPM CARLY
Clopidogrel Bisulfate 75 mg 08/04/25 08:00 08/05/25 08:23
Clopidogrel 75 Mg Tablet PO 09/01/25 07:59 75 mg
DAILY CARLY Administration
Cyanocobalamin 1,000 mcg 08/05/25 08:00 08/05/25 08:21
Cyanocobalamin (Vitamin B-12) 500 Mcg Tablet PO 09/02/25 07:59 1,000 mcg
DAILY CARLY Administration
Docusate Sodium 100 mg 08/05/25 07:27
Docusate Sodium 100 Mg Capsule PO 09/02/25 07:26
BIDPRN PRN
no BM > 24 hours
Enoxaparin Sodium 40 mg 08/04/25 18:00 08/04/25 17:08
Enoxaparin Sodium 40 Mg/0.4 Ml Syringe SC 09/01/25 17:59 40 mg
QPM CARLY Administration
Ferrous Sulfate 325 mg 08/05/25 22:00
Ferrous Sulfate 325 Mg Tablet PO 09/02/25 21:59
HS CARLY
Lorazepam 0.5 mg 08/04/25 02:39 08/05/25 15:52
Lorazepam 0.5 Mg Tablet PO 09/01/25 02:38 0.5 mg
Q4HPRN PRN Administration
Anxiety
Sodium Chloride 0 flush 08/04/25 03:00 08/04/25 09:42
Sodium Chloride 0.9% (Flush) Syringe IV 09/01/25 02:59 1 flush
PER PROTOCOL CARLY Administration
[2025-08-06 02:14] LABS: ANA, IgG Reflex to HEp-2 None Detected (None Detected)
[2025-08-06 13:32] LABS: Protein S Total Antigen 92 % (63-126)
[2025-08-06 18:25] LABS: Protein C, Total Antigen >95 % (63-153)
== END 2025-08-05 17:43 | disposition home or self-care (01) | DRG 64 ==
LOC: IVU 00:36
PROVIDERS: Emergency Medicine; ADMITTING PHYSICIAN Hospitalist; ATTENDING PHYSICIAN Internal Medicine; EMERGENCY PHYSICIAN Emergency Medicine; FAMILY PHYSICIAN Nurse Practitioner Family; OTHER PHYSICIAN Psychiatry & Neurology Neurology
DX: I63.541 Cerebral infarction due to unspecified occlusion or stenosis of right cerebellar artery (principal); I77.74 Dissection of vertebral artery; I82.611 Acute embolism and thrombosis of superficial veins of right upper extremity; I65.01 Occlusion and stenosis of right vertebral artery; M54.2 Cervicalgia; F32.A Depression, unspecified; F41.9 Anxiety disorder, unspecified; Z80.3 Family history of malignant neoplasm of breast; Z82.3 Family history of stroke; Z82.49 Family history of ischemic heart disease and other diseases of the circulatory system; Z88.8 Allergy status to other drugs, medicaments and biological substances
CPT/HCPCS: 70496; 70498; 70551; 74174; 76770; 80048; 80053; 80061; 82607; 82728; 82746; 83036; 84443; 84484; 84703; 85025; 85027; 85302; 85305; 85379; 85610; 85652; 86038; 86140; 93005; 93306; 93970; 93971; 93975; 97112; 97116; 97162; 97166; 99285; Q9967